=== PATIENT | female | born 1960 | race African-American/Black ===

== ENCOUNTER 2021-01-15 14:10 | Emergency (ER) | payer MEDICARE, MEDICAID ==
[~2021-01-15] VITALS: Ht 167.6 cm; Wt 66.0 kg
[2021-01-15] MEDS ORDERED: ONDANSETRON HCL 4MG/2ML INJ IV STA (14:24)
[2021-01-15] MEDS ORDERED: MORPHINE SULFATE 4 MG/ML CPJ (NOT FOR IM USE) IV STA (14:24)
[2021-01-15] MEDS ORDERED: SODIUM CHLORIDE 0.9% 1,000 ML IV ONE (14:30)
[2021-01-15 15:22] LABS: EOSINOPHILS % 1.5 % (0.0-5.0); HEMATOCRIT. 37.4 % (36.0-48.0); LYMPHOCYTES % 21.7 % (20.0-50.0); MEAN CORPUSCULAR HEMOGLOBIN 30.2 pg (28.0-32.0); MEAN CORPUSCULAR VOLUME 86.7 fL (81.0-99.0); MEAN PLATELET VOLUME 9.7 fl (7.4-10.4); MONOCYTES % 5.9 % (2.0-8.0); NEUTROPHILS % 69.9 % (40.0-76.0); PLATELET 213 x1000/uL (130-400); RED BLOOD CELL COUNT 4.31 mill/uL (4.2-5.4); RED CELL DISTRIBUTION WIDTH 13.2 % (11.6-14.6)
[2021-01-15 15:28] LABS: CHLORIDE 108 mEq/L (98-107)
[2021-01-15] MEDS ORDERED: POTASSIUM CHLORIDE 20MEQ TABLET SR PO ONE (16:15)
[2021-01-15 19:40] VITALS: BP 165/75
[2021-01-18] MEDS ORDERED: HYDR-4001 PO (10:20)
== END 2021-01-15 20:15 | disposition home or self-care (01) ==
LOC: ER 14:10
DX: M25.512 Pain in left shoulder (principal); I10 Essential (primary) hypertension; Z86.73 Personal history of transient ischemic attack (TIA), and cerebral infarction without residual deficits
CPT/HCPCS: 29105; 36415; 71045; 73030; 80053; 81025; 83880; 84484; 85025; 93005; 96360; 99285; J7030